=== PATIENT | female | born 1955 | race Caucasian/White ===

== ENCOUNTER → 2016-08-28 | Day surgery (SDC) | payer OTHER ==
[~2016-08-28] VITALS: Ht 172.7 cm; Wt 90.7 kg
[~2016-08-28] MED LIST: CYMBALTA60 M1 PO; LEVOTHYROXINE50 MCG PO; TRAMADOL HCL50 M1 PO
[2016-08-28 07:55] LABS: ABSOLUTE BASOPHIL COUNT 0 /CUMM (0.0-0.2); ABSOLUTE EOSINOPHIL COUNT 0.4 /CUMM (0.0-0.7); ABSOLUTE GRANULOCYTE CT 4.3 /CUMM (1.4-6.5); ABSOLUTE MONOCYTE COUNT 0.7 /CUMM (0.10-0.60); BASOPHIL % 0.6 % (0.0-2.0); EOSINOPHIL % 5.1 % (0-5); GRANULOCYTE % 58.1 % (42.2-75.2); HEMATOCRIT 42.6 % (37-47); MEAN CORPUSCULAR HGB 29.6 PG (27.0-31.0); MEAN CORPUSCULAR HGB CONC 32.6 G/DL (33.0-37.0); MEAN CORPUSCULAR VOLUME 90.8 FL (81.0-99.0); MEAN PLATELET VOLUME 10.3 FL (7.4-10.4); PLATELET COUNT 184 /CUMM (130-400); RBC DISTRIBUTION WIDTH 14.2 % (11.5-14.5); RED BLOOD CELL CT 4.69 /CUMM (4.20-5.40); WHITE BLOOD CELL COUNT 7.4 /CUMM (4.8-10.8)
--- NOTE | 2016-08-30 13:19 | Operative Report ---
Operative/Inv Procedure Report Surgery Date: 08/28/16 Name of Procedure: Excision of deep subfascial left hip soft tissue area mass 3.8 cm. Pre-Operative Diagnosis: Left thigh hip mass Post-Operative Diagnosis: Same Estimated Blood Loss: scant Surgeon/Learning Development Specialist: NAVI WEBB,SELVIN Treviño Anesthesia: general endotracheal tube Operative/Procedure Note Note: Patient initially positioned supine and after induction of general anesthesia IV antibiotics timeouts she was repositioned right lateral down supporting her left leg with cushions in the area of her hip buttock upper thigh on the left was prepped and draped in the usual sterile fashion, then the area over the mass was infiltrated local anesthetic we aimed a 3 cm incision over the mass following the skin lines made the incision with a scalpel deepened it with cautery the mass was subfascial not too far from the hip joint we dissected it out and removed this rockhard elongated bilobed 3.8 cm mass entirely underneath and off the deeper fascia we checked the area for hemostasis with cautery and closed in layers using interrupted 201 3-0 Vicryl sutures deep for the fascia a few more subdermal then a running subcuticular for the skin itself followed by Mastisol Steri-Strips Telfa and Tegaderm. EBL minimal lap and sponge counts correct wound expectancy clean IV fluids crystalloid complications none patient tolerated the procedure well was awakened returned to recovery room in satisfactory condition.
== END ==
LOC: STS 01:58
PROVIDERS: Surgery
DX: D21.22 Benign neoplasm of connective and other soft tissue of left lower limb, including hip (principal); Z87.891 Personal history of nicotine dependence; K21.9 Gastro-esophageal reflux disease without esophagitis; E66.9 Obesity, unspecified
CPT/HCPCS: 36415; 88305; 93005; 93010; J0131; J0690; J2250